=== PATIENT | female | born 1995 | race African-American/Black ===

== ENCOUNTER 2017-04-22 18:46 | Emergency (ER) | payer OTHER ==
[~2017-04-22] VITALS: Ht 177.8 cm; Wt 90.5 kg
[~2017-04-22 18:46] MED LIST: Z.0.NO CURRENT MEDS
[2017-04-22 18:47] VITALS: BP 115/58; PULSE 81; RESP 16; TEMP 99; O2SAT 98
--- NOTE | 2017-04-22 21:55 | PD ---
Physical Exam Date Seen by Provider: Apr 22, 2017 Time Seen by Provider: 21:50 Narrative 22 year old female presents to the emergency department thinking she may be and had an episode of vaginal bleeding. She doesn't believe it was her menstrual cycle. Patient states she did take a home test that was negative. Mild severity. Data Data Last Documented VS Vital Signs Date Time Temp Pulse Resp B/P (MAP) Pulse Ox O2 Delivery O2 Flow Rate FiO2 04/22/17 18:47 99.0 81 16 115/58 (77) 98 Room Air [facility] Medical Record Reviewed: Yes Supervised Visit with RASHAD: No Narrative Course 22 year old female presents to the emergency department for possible , vaginal bleeding. Patient was initially seen in triage. Patient left AMA before she could be placed in a medical bed for further evaluation. Diagnosis Primary Impression: Left against medical advice Additional Impression: Vaginal bleeding Disposition: 07 AGAINST MEDICAL ADVICE Mi Zamora Apr 22, 2017 21:55
== END 2017-04-22 21:50 | disposition left against medical advice (07) ==
LOC: NED 18:46
DX: N93.9 Abnormal uterine and vaginal bleeding, unspecified (principal); Z53.21 Procedure and treatment not carried out due to patient leaving prior to being seen by health care provider
CPT/HCPCS: 99281

== ENCOUNTER 2017-06-12 14:52 | Emergency (ER) | payer MEDICAID ==
[~2017-06-12] VITALS: Ht 177.8 cm; Wt 68.0 kg
[2017-06-12 14:58] VITALS: BP 118/65; PULSE 61; RESP 16; TEMP 98.7; O2SAT 100
--- NOTE | 2017-06-12 16:11 | PD ---
HPI Chief Complaint: Related Problem Time Seen by Provider: 15:59 Travel History International Travel<30 days: No Contact w/Intl Traveler<30days: No Traveled to known affect area: No History of Present Illness HPI 22yo F who is 6wk1d by LMP of 04/30/17 presents to the ED with c/o vaginal spotting for 1 week. Also with vaginal discharge. Denies any fever, chest pain , sob, n/v, abdominal pain, dysuria, focal weakness or numbness. PFSH Past Medical History ADHD: No Cancer: No Diabetes: No Diminished Hearing: No Psychiatric: No Immunizations Current: Yes Migraines: No Seizures: No Thyroid Disease: No Ulcer: No ?: LMP: 05/28/17 Past Surgical History Appendectomy: No Cholecystectomy: No Social History Alcohol Use: Yes Tobacco Use: No Substance Use: Yes Allergies-Medications (Allergen,Severity, Reaction): Coded Allergies: No Known Allergies (Verified Allergy, Severe, 11/04/06) Reported Meds & Prescriptions Reported Meds & Active Scripts Active No Active Prescriptions or Reported Medications Review of Systems Except as stated in HPI: all other systems reviewed are Neg Physical Exam Narrative GENERAL: 22yo F not in distress. SKIN: Focused skin assessment warm/dry. HEAD: Atraumatic. Normocephalic. CARDIOVASCULAR: Regular rate and rhythm. No murmur appreciated. RESPIRATORY: No accessory muscle use. Clear to auscultation. Breath sounds equal bilaterally. GASTROINTESTINAL: Abdomen soft, non-tender, nondistended. No rebound tenderness or guarding. PELVIC:+White vaginal discharge. No vaginal bleeding. Cervical os closed. No CMT or adnexal tenderness bilaterally. MUSCULOSKELETAL: No obvious deformities. No clubbing. No cyanosis. No edema. NEUROLOGICAL: Awake and alert. No obvious cranial nerve deficits. Motor grossly within normal limits. Normal speech. PSYCHIATRIC: Appropriate mood and affect; insight and judgment normal. Data Data Last Documented VS Vital Signs Date Time Temp Pulse Resp B/P (MAP) Pulse Ox O2 Delivery O2 Flow Rate FiO2 06/12/17 14:58 98.7 61 16 118/65 (82) 100 Orders Orders Beta Hcg (Quant/Titer) (06/12/17 16:05) Complete Blood Count With Diff (06/12/17 16:05) Basic Metabolic Panel (Bmp) (06/12/17 16:05) Gc And Chlamydia Pcr (3/3/18 16:05) Type And Screen (06/12/17 16:05) Us Pelvis (Ques Preg/Ectopic) (06/12/17 ) Wet Prep Profile (06/12/17 16:05) Urinalysis - C+S If Indicated (06/12/17 16:05) Labs Laboratory Tests Test 06/12/17 16:25 06/12/17 16:45 White Blood Count 10.5 TH/MM3 Red Blood Count 4.54 MIL/MM3 Hemoglobin 12.3 GM/DL Hematocrit 37.0 % Mean Corpuscular Volume 81.4 FL Mean Corpuscular Hemoglobin 27.1 PG Mean Corpuscular Hemoglobin Concent 33.3 % Red Cell Distribution Width 13.6 % Platelet Count 221 TH/MM3 Mean Platelet Volume 8.5 FL Neutrophils (%) (Auto) 71.6 % Lymphocytes (%) (Auto) 20.0 % Monocytes (%) (Auto) 7.0 % Eosinophils (%) (Auto) 0.8 % Basophils (%) (Auto) 0.6 % Neutrophils # (Auto) 7.5 TH/MM3 Lymphocytes # (Auto) 2.1 TH/MM3 Monocytes # (Auto) 0.7 TH/MM3 Eosinophils # (Auto) 0.1 TH/MM3 Basophils # (Auto) 0.1 TH/MM3 CBC Comment DIFF FINAL Differential Comment Urine Color YELLOW Urine Turbidity HAZY Urine pH 8.0 Urine Specific [place] 1.024 Urine Protein TRACE mg/dL Urine Glucose (UA) NEG mg/dL Urine Ketones NEG mg/dL Urine Occult Blood NEG Urine Nitrite NEG Urine Bilirubin NEG Urine Urobilinogen LESS THAN 2.0 MG/DL Urine Leukocyte Esterase SMALL Urine RBC 1 /hpf Urine WBC 1 /hpf Urine Squamous Epithelial Cells 5 /hpf Urine Mucus FEW /lpf Microscopic Urinalysis Comment CULT NOT INDICATED Blood Urea Nitrogen 7 MG/DL Creatinine 0.58 MG/DL Random Glucose 92 MG/DL Calcium Level 8.5 MG/DL Sodium Level 138 MEQ/L Potassium Level 3.8 MEQ/L Chloride Level 105 MEQ/L Carbon Dioxide Level 28.4 MEQ/L Anion Gap 5 MEQ/L Estimat Glomerular Filtration Rate 156 ML/MIN Human Chorionic Gonadotropin, Quant 42453 MIU/ML Clue Cells (Wet Prep) NONE SEEN Vaginal Trichomonas (Wet Prep) PRESENT Vaginal Yeast (Wet Prep) NONE SEEN MDM Medical Decision Making Medical Screen Exam Complete: Yes Emergency Medical Condition: Yes Differential Diagnosis Threatened vs. ectopic Narrative Course 22yo F who is [id number] with vaginal spotting for 1 week. Pt has no abdominal pain. TVUS, labs, UA are still pending. Sign out to next team to follow up and reevaluate. Diagnosis Primary Impression: Vaginal bleeding Scripts No Active Prescriptions or Reported Meds Rosie Solorzano DO Jun 12, 2017 16:11
[2017-06-12 16:45] LABS: AUTOMATED NEUTROPHIL # 7.5 TH/MM3 (1.8-7.7); BASOPHIL # 0.1 TH/MM3 (0-0.2); BASOPHIL % 0.6 % (0.0-2.0); EOSINOPHIL # 0.1 TH/MM3 (0-0.4); EOSINOPHIL % 0.8 % (0.0-4.0); HEMOGLOBIN 12.3 GM/DL (11.6-15.3); LYMPHOCYTE # 2.1 TH/MM3 (1.0-4.8); MEAN CELL VOLUME 81.4 FL (80.0-100.0); MEAN CORPUSCULAR HEMOGLOBIN 27.1 PG (27.0-34.0); MEAN CORPUSCULAR HGB CONC 33.3 % (32.0-36.0); MEAN PLATELET VOLUME 8.5 FL (7.0-11.0); MONOCYTE # 0.7 TH/MM3 (0-0.9); NEUT % 71.6 % (16.0-70.0); PLATELET COUNT 221 TH/MM3 (150-450); RED BLOOD COUNT 4.54 MIL/MM3 (4.00-5.30); RED CELL DISTRIBUTION WIDTH 13.6 % (11.6-17.2); WHITE BLOOD COUNT 10.5 TH/MM3 (4.0-11.0)
[2017-06-12 16:55] LABS: BILIRUBIN, URINE NEG (NEG); BLOOD, URINE NEG (NEG); GLUCOSE,URINE NEG (NEG); KETONE, URINE NEG (NEG); MUCUS URINE FEW /lpf (OCC); NITRITE,URINE NEG (NEG); SQUAMOUS EPITHELIAL CELL URINE 5 /hpf (0-5); URINE COLOR YELLOW (YELLW/STRAW); URINE LEUKOCYTE ESTERASE SMALL (NEG)
[2017-06-12 17:01] LABS: BICARBONATE 28.4 MEQ/L (21.0-32.0); CALCIUM 8.5 MG/DL (8.5-10.1); CREATININE 0.58 MG/DL (0.50-1.00)
[2017-06-12] MEDS ORDERED: metroNIDAZOLE 500 MG TAB PO ONE (18:30)
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
--- NOTE | 2017-06-12 19:04 | PD ---
Physical Exam Narrative Patient signed out to me by Dr. Solorzano. Please see her documentation for complete details. Briefly, patient is a 22 year old female who comes in complaining of bleeding during her . She describes it as spotting. Exam shows no abdominal tenderness. Data Data Last Documented VS Vital Signs Date Time Temp Pulse Resp B/P (MAP) Pulse Ox O2 Delivery O2 Flow Rate FiO2 06/12/17 14:58 98.7 61 16 118/65 (82) 100 Orders Orders Beta Hcg (Quant/Titer) (06/12/17 16:05) Complete Blood Count With Diff (06/12/17 16:05) Basic Metabolic Panel (Bmp) (06/12/17 16:05) Gc And Chlamydia Pcr (06/12/17 16:05) Type And Screen (06/12/17 16:05) Us Pelvis (Ques Preg/Ectopic) (06/12/17 ) Wet Prep Profile (06/12/17 16:05) Urinalysis - C+S If Indicated (06/12/17 16:05) Metronidazole (Flagyl) (06/12/17 18:30) Labs Laboratory Tests Test 06/12/17 16:25 06/12/17 16:45 White Blood Count 10.5 TH/MM3 Red Blood Count 4.54 MIL/MM3 Hemoglobin 12.3 GM/DL Hematocrit 37.0 % Mean Corpuscular Volume 81.4 FL Mean Corpuscular Hemoglobin 27.1 PG Mean Corpuscular Hemoglobin Concent 33.3 % Red Cell Distribution Width 13.6 % Platelet Count 221 TH/MM3 Mean Platelet Volume 8.5 FL Neutrophils (%) (Auto) 71.6 % Lymphocytes (%) (Auto) 20.0 % Monocytes (%) (Auto) 7.0 % Eosinophils (%) (Auto) 0.8 % Basophils (%) (Auto) 0.6 % Neutrophils # (Auto) 7.5 TH/MM3 Lymphocytes # (Auto) 2.1 TH/MM3 Monocytes # (Auto) 0.7 TH/MM3 Eosinophils # (Auto) 0.1 TH/MM3 Basophils # (Auto) 0.1 TH/MM3 CBC Comment DIFF FINAL Differential Comment Urine Color YELLOW Urine Turbidity HAZY Urine pH 8.0 Urine Specific [place] 1.024 Urine Protein TRACE mg/dL Urine Glucose (UA) NEG mg/dL Urine Ketones NEG mg/dL Urine Occult Blood NEG Urine Nitrite NEG Urine Bilirubin NEG Urine Urobilinogen LESS THAN 2.0 MG/DL Urine Leukocyte Esterase SMALL Urine RBC 1 /hpf Urine WBC 1 /hpf Urine Squamous Epithelial Cells 5 /hpf Urine Mucus FEW /lpf Microscopic Urinalysis Comment CULT NOT INDICATED Blood Urea Nitrogen 7 MG/DL Creatinine 0.58 MG/DL Random Glucose 92 MG/DL Calcium Level 8.5 MG/DL Sodium Level 138 MEQ/L Potassium Level 3.8 MEQ/L Chloride Level 105 MEQ/L Carbon Dioxide Level 28.4 MEQ/L Anion Gap 5 MEQ/L Estimat Glomerular Filtration Rate 156 ML/MIN Human Chorionic Gonadotropin, Quant 59542 MIU/ML Clue Cells (Wet Prep) NONE SEEN Vaginal Trichomonas (Wet Prep) PRESENT Vaginal Yeast (Wet Prep) NONE SEEN MDM Supervised Visit with RASHAD: No Narrative Course Patient's Wet Prep is positive from Trich. Treated with Flagyl per CDC recommendations. She is advised to have her partners treated. Blood type is O+. US shows an IUP. Patient advised to follow up with OB. Advised to return as needed for any worsening symptoms. Diagnosis Primary Impression: Threatened Patient Instructions: General Instructions, Threatened Miscarriage (ED) Additional Instruction: Follow up with OB. Make sure your partners are treated for trichomoniasis as well. Practice pelvic rest for the next 2 weeks. Return to the ED as needed for any worsening symptoms. Scripts No Active Prescriptions or Reported Meds Disposition: 01 DISCHARGE HOME Condition: Stable Asia Dubon MD Jun 12, 2017 19:04
== END 2017-06-12 19:15 | disposition home or self-care (01) ==
LOC: NEPD 14:52
DX: O20.0 Threatened abortion (principal); Z3A.01 Less than 8 weeks gestation of pregnancy
CPT/HCPCS: 76700; 76817; 80048; 81001; 84702; 85025; 86850; 86900; 86901; 87210; 87491; 87591

== ENCOUNTER 2017-09-04 17:16 | Emergency (ER) | payer OTHER, MEDICAID ==
[~2017-09-04] VITALS: Ht 177.8 cm; Wt 86.4 kg
[2017-09-04 17:24] VITALS: BP 129/60; PULSE 77; RESP 18; TEMP 99.1; O2SAT 99
[2017-09-04] MEDS ORDERED: TRAM50TA PO (19:17)
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
[2017-09-04] MEDS ORDERED: traMADol HCL 50 MG TAB PO ONE (19:45)
[2017-09-04] MEDS ORDERED: TYLETAB34 PO (19:53)
== END 2017-09-04 20:26 | disposition home or self-care (01) ==
LOC: NEPD 17:16
DX: S16.1XXA Strain of muscle, fascia and tendon at neck level, initial encounter (principal); V43.62XA Car passenger injured in collision with other type car in traffic accident, initial encounter
CPT/HCPCS: 99283

== ENCOUNTER 2017-09-06 11:57 | Emergency (ER) | payer MEDICAID ==
[~2017-09-06] VITALS: Ht 177.8 cm; Wt 90.0 kg
[~2017-09-06 11:57] MED LIST changes: +TRAM50TA PO; +TYLETAB34 PO; -Z.0.NO CURRENT MEDS
[2017-09-06 12:12] VITALS: BP 131/69; PULSE 81; RESP 16; TEMP 98.9; O2SAT 100
--- NOTE | 2017-09-06 12:19 | PD ---
HPI Chief Complaint: ENT Complaint Time Seen by Provider: 12:18 Travel History International Travel<30 days: No Contact w/Intl Traveler<30days: No Traveled to known affect area: No History of Present Illness HPI 21-year-old female presents emergency department with ongoing worsening sinus congestion, ear pain, postnasal drip, sore throat, difficulty swallowing secondary to throat pain. Patient is also complaining about pain across the shoulders. She states she was seen 2 days ago and given Tylenol 3 and tramadol. She states her symptoms have worsened since that time. She is unsure if she has had any fever. She denies nausea, vomiting, abdominal pain, urinary symptoms, or vaginal symptoms. She states her throat pain is 10 out of 10. She has no known drug allergies. PFSH Past Medical History ADHD: No Cancer: No Diabetes: No Diminished Hearing: No Psychiatric: No Immunizations Current: Yes Migraines: No Seizures: No Thyroid Disease: No Ulcer: No ?: Not Past Surgical History Appendectomy: No Cholecystectomy: No Other Surgery: Yes (CARPAL TUNNEL) Social History Alcohol Use: Yes (OCCASIONALLY) Tobacco Use: No Substance Use: Yes (PT DENIES) Allergies-Medications (Allergen,Severity, Reaction): Coded Allergies: No Known Allergies (Verified Allergy, Severe, 11/04/06) Reported Meds & Prescriptions Reported Meds & Active Scripts Active Tylenol-Codeine #3 (Acetaminophen-Codeine) 300-30 mg Tab 1 Tab PO Q6H PRN Tramadol (Tramadol HCl) 50 Mg Tab 50 Mg PO Q6H PRN Review of Systems Except as stated in HPI: all other systems reviewed are Neg General / Constitutional: Positive: Chills, No: Fever Eyes: No: Visual changes HENT: Positive: Headaches, Sore Throat, Rhinitis (Severe), Rhinorrhea, Congestion, Earache, No: Vertigo, Lightheadedness, Nosebleed, Neck Stiffness, Neck Pain, Masses, Gingival Bleeding, Dental Difficulties, Ear Discharge Cardiovascular: No: Chest Pain or Discomfort Respiratory: Positive: Cough, No: Shortness of Breath, Wheezing Gastrointestinal: No: Nausea, Vomiting, Diarrhea, Abdominal Pain Genitourinary: No: Dysuria Musculoskeletal: Positive: Myalgias, No: Pain Skin: No Rash Neurologic: No: Weakness Psychiatric: No: Depression Endocrine: No: Polydipsia Hematologic/Lymphatic: No: Easy Bruising Physical Exam Narrative GENERAL: Patient appears in mild to moderate distress. SKIN: Warm and dry. Normal color. Normal turgor HEAD: Atraumatic. Normocephalic. Moderate sinus tenderness to palpation and percussion bilaterally. EYES: Pupils equal and round. No scleral icterus. No injection or drainage. ENT: No nasal bleeding or discharge. Mucous membranes pink and moist. TMs are somewhat dull bilaterally without injection. Posterior pharynx is erythematous and swollen with exudate bilaterally. Airway is patent however with uvula being midline. She has a muffled voice. Postnasal drip was noted NECK: Trachea midline. Supple with moderate anterior cervical lymphadenopathy CARDIOVASCULAR: Regular rate and rhythm. No murmurs gallops or rubs. RESPIRATORY: No accessory muscle use. Clear to auscultation. Breath sounds equal bilaterally. GASTROINTESTINAL: Abdomen soft, non-tender, nondistended. Hepatic and splenic margins not palpable. MUSCULOSKELETAL: Extremities without clubbing, cyanosis, or edema. No obvious deformities. NEUROLOGICAL: Awake and alert. No obvious cranial nerve deficits. Motor grossly within normal limits. Five out of 5 muscle strength in the arms and legs. Normal speech. PSYCHIATRIC: Appropriate mood and affect; insight and judgment normal. Data Data Last Documented VS Vital Signs Date Time Temp Pulse Resp B/P (MAP) Pulse Ox O2 Delivery O2 Flow Rate FiO2 09/06/17 12:12 98.9 81 16 131/69 (89) 100 MDM Medical Decision Making Medical Screen Exam Complete: Yes Emergency Medical Condition: Yes Medical Record Reviewed: Yes Differential Diagnosis Pharyngitis. Postnasal drip. Strep pharyngitis. Narrative Course Patient is treated with amoxicillin 875 twice daily 10 days Patient is given ibuprofen 600 mg 4 times daily #40 Patient started on Flonase nasal spray 2 sprays each nostril daily Patient also given Magic mouthwash to be taken before eating and at bedtime. Patient to follow-up if symptoms warrant Diagnosis Primary Impression: Pharyngitis Qualified Codes: J02.9 - Acute pharyngitis, unspecified Additional Impression: Acute sinusitis Qualified Codes: J01.40 - Acute pansinusitis, unspecified Patient Instructions: General Instructions, Pharyngitis (ED), Sinusitis (ED) Additional Instructions: Patient is treated with amoxicillin 875 twice daily 10 days Patient is given ibuprofen 600 mg 4 times daily #40 Patient started on Flonase nasal spray 2 sprays each nostril daily Patient also given Magic mouthwash to be taken before eating and at bedtime. Patient to follow-up if symptoms warrant Scripts Ibuprofen (Ibuprofen) 600 Mg Tab 600 MG PO Q6H Y for Pain/Inflammation, #40 TAB 0 Refills Prov: Asia Dubon MD 09/06/17 Fluticasone Nasal [place] (Flonase Nasal [place]) 50 Mcg/Act [place] 100 MCG EACH NARE BID for Allergies, #1 BOTTLE 0 Refills Prov: Asia Dubon MD 09/06/17 Ykmjppdt-Hengilheotrctsc-Wvwdeihsk Liq (Magic Mouthwash Adult Liq) 120 Ml Susp 10 ML SWISH-SWAL ACHS for Mouth sores, #120 ML 0 Refills Each 5mL contains: Nystatin 200,000units, Diphenhydramine 4.25mg, Viscous Lidocaine 10mg, Branch syrup 0.8 mL Prov: Asia Dubon MD 09/06/17 Amoxicillin (Amoxicillin) 875 Mg Tab 875 MG PO BID for Infection for 10 Days, #20 TAB 0 Refills Prov: Asia Dubon MD 09/06/17 Disposition: 01 DISCHARGE HOME Condition: Stable Luis Rodrigues September 06, 2017 12:19
[2017-09-06] MEDS ORDERED: MAGICADU2 SWISH-SWAL (12:25)
[2017-09-06] MEDS ORDERED: AMOX875T PO (12:25)
[2017-09-06] MEDS ORDERED: IBUP-232 PO (12:25)
[2017-09-06] MEDS ORDERED: FLUT1SPR5 EACH NARE (12:25)
== END 2017-09-06 13:09 | disposition home or self-care (01) ==
LOC: NEPK 11:57
DX: J02.9 Acute pharyngitis, unspecified (principal); J01.40 Acute pansinusitis, unspecified
CPT/HCPCS: 99283